=== PATIENT | male | born 1950 | race African-American/Black ===

== ENCOUNTER 2017-03-20 05:52 | Day surgery (SDC) | payer MEDICARE, OTHER ==
[~2017-03-20 05:52] MED LIST: BAYER CHEWABLE81 MG PO; COREG6.25 MG PO; LANOXIN125 MCG; LANOXIN250 MCG PO; LIPITOR40 MG PO; LISINOPRIL2.5 MG; PLAVIX75 MG PO; ZESTORETIC 20/21 TAB PO; ZOCOR40 MG PO; ZOCOR5 MG
[2017-03-20 06:45] LABS: HEMATOCRIT 45.7 % (42.0-54.0); HEMOGLOBIN 15.6 g/dL (13.5-17.5); MCHC 34.1 g/dL (31.0-37.0); MCV 96.6 fL (80.0-100.0); MEAN PLATELET VOLUME 11.4 fL (7.4-10.4); RBC 4.73 10x6/uL (4.20-6.10); RDW 13.1 % (11.5-14.5); WBC 6.2 10x3/uL (4.8-10.8)
[2017-03-20 07:03] VITALS: BP 135/103; BMI 24.1
--- NOTE | 2017-03-20 09:52 | NUR ---
INGUINAL HERNIA REPAIR NOT COMPLETE DUE TO DIAGNOSIS OF ANAL CANCER PER DR GARCIA.
--- NOTE | 2017-03-20 10:35 | NUR ---
SORAIDA NOTIFIED REGARDING PATIENTS SOB AND PATIENT FEELS UNABLE TO TAKE A GOOD BREATH. PATIENT TOLD ANESTHESIA HE FELT NAUSEOUS, ALSO. PER ANESTHESIA, GAVE PA
--- NOTE | 2017-03-20 11:30 | NUR ---
DR GARCIA IN AND SPOKE WITH PATIENT. STATES PATIENT C/O NAUSEA AND TO GIVE ANOTHER DOSE OF ZOFRAN. ASKING TO GO TO THE BATHROOM, URINAL GIVEN AT THIS TIME. IN ROOM.
--- NOTE | 2017-03-20 11:44 | NUR ---
RETURNED TO ROOM WITH PA. PATIENT IS LAYING BACK ON BED WITH EYES CLOSED, LEGS ARE DANGLING ON SIDE OF BED. DID NOT RESPOND TO VERBAL STIMULI. LEGS PLACED IN BED BY MYSELF, SKIN IS WARM, NO RESPONSE TO TACTILE STIMULI. GASPED TO PAINFUL STIMULI, CODE BLUE CALLED. SEE CODE BLUE SHEETS.
--- NOTE | 2017-03-20 11:45 | NUR ---
ESCORTED OUT OF ROOM TO WAITING ROOM.
--- NOTE | 2017-03-20 14:20 | NUR ---
BODY RELEASED TO [facility]. BELONGINGS GIVEN TO . SEVERAL FAMILY MEMBERS ARE HERE.
--- NOTE | 2017-03-21 14:00 | OP ---
PATIENT NAME: ROBERT HILL MEDICAL RECORD: [id number] :50 LOCATION:D.OPS ADMISSION DATE: SURGEON: AIDA GARCIA MD DATE OF OPERATION: 03/20/2017 PREOPERATIVE DIAGNOSES: 1. Symptomatic hemorrhoids. 2. Symptomatic left inguinal hernia. POSTOPERATIVE DIAGNOSES: 1. Symptomatic left inguinal hernia. 2. Poorly differentiated anal squamous cell carcinoma. PROCEDURE: Incisional biopsy of the anus. SURGEON: Aida Garcia MD SKEIN TIER: None. BLOOD LOSS: Minimal. ANESTHESIA: General. COMPLICATIONS: None. The risks, possible complications and alternatives to procedure were explained to the patient. He elects to proceed. I elected to go from "dirty to clean" during this operation as if I had performed the inguinal hernia repair initially with manipulation of the patient and positioning him in the lithotomy position I was afraid that there may have been mesh migration. For that reason, I had elected to perform the procedure for prolapse and hemorrhoids first and then the left inguinal hernia repair with mesh second. During the operation, once I identified that the patient had anal squamous cell cancer that was extensive, I then terminated the procedure. It was not going to be worthwhile to place a left inguinal mesh as if the patient requires an abdominoperineal resection I would be bringing out a colostomy right in that area and if he requires an APR in the near future that could cause mesh contamination requiring removal of the mesh. His inguinal hernia is only mildly symptomatic anyhow. I contacted Dr. Martínez by phone. The family prefers Dr. Peguero to be the oncologist. I have contacted him by phone as well and the patient is going be seeing Dr. Peguero in the office at 9:00 tomorrow. The risks, possible complications and alternatives to the procedure were explained to the patient. OPERATIVE COURSE: The patient was conveyed to the operating room electively on 03/20/2017. General anesthesia was induced by the anesthesia staff. The patient was placed in the lithotomy position. The buttocks were taped laterally. The anus and perianal areas were sterilely prepped and draped. I tried to dilate the anus with my gloved fingers. It would not dilate very far. OPERATIVE REPORT [id number] ROBERT HILL My index finger could fit into the anal opening; however, not much more. Only the smallest anal retractor could be inserted. There was induration with the patient in the lithotomy position from the 2 o'clock position to the 8 o'clock position encompassing half the circumference of the anus. It was a fixed mass. There was an exophytic portion of the mass at the 4 o'clock position. I decided to excise this exophytic portion. I took the Harmonic scalpel. I started to incise the anal skin. I tried to sweep down the anal musculature and it was clearly evident that the mass had invaded the anal musculature including the external and internal sphincters. A portion of these very likely came out with the mass, which was excised with the Harmonic scalpel. Meticulous hemostasis was achieved with electrocautery. I then marsupialized the wound with a running locking 3-0 Vicryl Rapide suture. I then took some additional cores from the 2 o'clock position to the 8 o'clock position and these were done with the 14-gauge core biopsy device. Hemostasis was achieved with the electrocautery. Gelfoam was applied within the anus and lower rectum. Fibrillar was applied to the ulcerated area, which could not be closed at the 4 o'clock position. A topical anesthetic cream was applied to the external hemorrhoids. The patient was then extubated and conveyed to post-anesthesia care unit where he was in stable condition. I went out and spoke to the patient's family. 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
--- NOTE | 2017-03-21 14:00 | HP ---
PATIENT: ROBERT HILL MEDICAL RECORD: [id number] ACCOUNT: [id number] LOCATION:TAN : 50 ADMISSION DATE: 03/20/17 HISTORY AND PHYSICAL EXAMINATION There is a history and physical on the chart. The patient has a symptomatic left inguinal hernia. I saw him in the holding area. I have marked the left inguinal hernia. He also has symptomatic hemorrhoids. He has small caliber stools. I am going to plan for a procedure for prolapse and hemorrhoids. We discussed the risks, possible complications, and alternatives to the procedure. He elects to proceed. 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
--- NOTE | 2017-03-21 14:00 | PN ---
PATIENT:ROBERT HILL MEDICAL RECORD: [id number] LOCATION:[facility] ADMISSION DATE: 03/20/17 PROGRESS NOTE DATE OF SERVICE: 03/20/2017 CODE BLUE NOTE The patient was rapid responsed and then he had a code blue episode with cardiopulmonary arrest about 2 or 3 minutes after I left his room. He had been complaining of some shortness of breath. He had been having no chest pain. His states that he became unresponsive, she called for nurses who came immediately. A rapid response was called. When he was found to be pulseless, a code blue was called. Anesthesia arrived within moments. I was there within moments as well. We had probably half a dozen anesthesia providers as well as myself and a dozen nurses assisting in his resuscitative efforts, which occurred over the course of about an hour. His main complex was PEA. He also had pulseless V-tach as well as VFib. We used ACLS protocols as a guide to his resuscitative efforts; however, we also used our collective medical knowledge and clinical skills to add therapies and diagnostic studies to the ACLS protocols. This included toward the end of the resuscitative efforts performing ultrasound examination of the heart, which revealed fibrillation, which was also noted on the monitor. The patient was given inotropes as we thought that he might be having massive heart attack. I think that the most likely occurrence was a pulmonary thromboembolism. He had been up in [facility]. He was found to have a malignancy today, which could lead him hypercoagulable. He recently stopped his aspirin. He was short of breath postoperatively, but this resolved largely. He was having no chest pain. Nothing on the EKG monitors during the operation to indicate a myocardial infarction. I believe that the cause of was a pulmonary thromboembolism, but we treated him for both pulmonary thromboembolism as well as for a myocardial infarction by giving him heparin as well as TNKase during the resuscitative efforts to no avail. Time of was 12:47 p.m. 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
--- NOTE | 2017-04-23 09:40 | DS ---
PATIENT:ROBERT HILL :50 MEDICAL RECORD: [id number] DISCHARGE SUMMARY ADMISSION DATE: 03/20/17 DISCHARGE DATE: 03/20/17 SUMMARY PRINCIPAL DIAGNOSES: 1. due to cardiopulmonary arrest, likely from a pulmonary thromboembolism. 2. Anal cancer. 3. Inguinal hernia. 4. History of coronary stents times 1. 5. History of coronary artery disease. 6. Hypertension. PROCEDURE: Anal evaluation under anesthesia with incisional biopsies of the anus. HOSPITAL COURSE: The patient was conveyed to the operating room on 03/20/2017. He was to undergo hernia repair as well as a hemorrhoid operation. Upon inspection of the anus, there was woody induration of the anus and this was a fixed mass. I was very fearful this represented a malignancy. Core biopsies were obtained with a core needle biopsy device. I then excised a portion of the wall of the anus, where there was erosive mass that involved the anal sphincters. This was sent for frozen section examination and this revealed that this was anal cancer. I elected to terminate the operation at that time, and we were not going to proceed with inguinal hernia or hemorrhoid operation as the patient obviously had a much more challenging problem. The patient was recovered in the recovery room. He went to the outpatient department. I went over and spoke to the family about the unexpected findings. Once the patient was awake, I went over and talked to him about the unexpected findings as well as outlined a treatment plan, which was going to require very likely chemotherapy and radiation as well as an abdominoperineal resection with a permanent colostomy. Upon leaving the room about 3 minutes later, I heard a code blue resuscitation over the loud speakers. I ran over to the outpatient department. There were about a half dozen anesthesia providers there as well as myself. We performed a code blue type of resuscitation for approximately an hour. There was no significant return of spontaneous circulation. The code was called. The time of was 12:47 p.m. 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
== END 2017-03-20 14:20 ==
LOC: D.OPS 05:52 → D.PAN 08:00 → D.OPS 08:00
PROVIDERS: Anesthesiology
DX: C21.8 Malignant neoplasm of overlapping sites of rectum, anus and anal canal (principal); I97.121 Postprocedural cardiac arrest following other surgery; I26.99 Other pulmonary embolism without acute cor pulmonale; K40.90 Unilateral inguinal hernia, without obstruction or gangrene, not specified as recurrent; K64.4 Residual hemorrhoidal skin tags; Z01.812 Encounter for preprocedural laboratory examination